=== PATIENT | female | born 1995 | race Caucasian/White ===

== ENCOUNTER 2023-08-08 16:05 | Inpatient (IN) | payer OTHER, SELFPAY ==
[2023-08-08] VITALS (10 sets, daily range): BP systolic 138–154; BP diastolic 80–101; PULSE 80–94; TEMP 36.2–36.4; BMI 40.9
--- NOTE | 2023-08-08 16:25 | LDADM ---
This patient, Mouna Walls, was admitted to Labor/Delivery/Recovery 108 on 08/08/23 at 16:05. Plans for labor, pain management and were discussed with patient. Patient/family oriented to hospital policies and general routines including ID bracelet, bed and alarms, visiting hours, pain management, procedures, bathroom and other care routines, personal items, smoking policy, room service/diet and guest tray routines, infant security routines, and visiting hours. Patient/Family are encouraged to report perceived risks to care and to ask questions if they do not understand what they are told or what they should do. See OBIX for further documentation.
[2023-08-08 17:10] LABS: Basophils Percent Auto 0.3 % (0.2-1.2); Eosinophils Absolute Auto 0.1 K/mm3 (0-0.3); Eosinophils Percent Auto 0.8 % (0-4.4); Hematocrit 36.1 % (37.0-47.0); Hemoglobin 11.8 g/dL (12.0-15.0); Immature Granulocyte Absolute 0.12 K/mm3 (0.00-0.031); Immature Granulocyte Percent A 0.9 % (0-0.5); Lymphocytes Absolute Auto 2.65 K/mm3 (0.9-3.2); Lymphocytes Percent Auto 19.5 % (18.3-44.2); Mean Corpuscular HGB Conc 32.7 g/dl (32-36); Mean Corpuscular Volume 94.8 fl (80-100); Mean Platelet Volume 10.8 fl (7.4-10.4); Monocytes Absolute Auto 0.6 K/mm3 (0.1-0.6); Monocytes Percent Auto 4.1 % (2.6-8.5); Neutrophils Absolute Auto 10.1 K/mm3 (1.3-6.7); Neutrophils Percent Auto 74.4 % (45.5-73.1); Platelet Count Result 271 k/mm3 (150-375); Red Blood Count 3.81 M/mm3 (4.2-5.4); White Blood Count 13.6 K/mm3 (4.5-10.0)
[2023-08-08] MEDS: DINOPROSTONE 10 MG VAG INSERT VAGINAL (17:10)
--- NOTE | 2023-08-08 17:25 | P.PNAN_ITS ---
Anes - Eval Pre Procedure Procedure: labor epidural Date/Time: 08/08/23 17:25 Preop Diagnosis: pain during labor Pre Op Diagnosis: IOL Patient Data Age: 28 Gender: F Height: 1.68 m Weight: 115 kg Last Vital Signs Temp 36.2 C L 08/08/23 16:45 O2 Del Method Room Air 08/08/23 16:23 Allergies Allergy/AdvReac Type Severity Reaction Status Date / Time No Known Allergies Allergy Verified 07/16/23 15:10 Laboratory Tests 08/08/23 16:15 WBC 13.6 H K/mm3 (4.5-10.0) RBC 3.81 L M/mm3 (4.2-5.4) Hgb 11.8 L g/dL (12.0-15.0) Hct 36.1 L % (37.0-47.0) MCV 94.8 fl (80-100) MCH 31.0 pg (26-34) MCHC 32.7 g/dl (32-36) RDW 14.0 % (11.5-14.5) Plt Count 271 k/mm3 (150-375) MPV 10.8 H fl (7.4-10.4) Immature Gran % (Auto) 0.9 H % (0-0.5) Neut % (Auto) 74.4 H % (45.5-73.1) Lymph % (Auto) 19.5 % (18.3-44.2) Brule % (Auto) 4.1 % (2.6-8.5) Eos % (Auto) 0.8 % (0-4.4) Baso % (Auto) 0.3 % (0.2-1.2) Lymph # (Auto) 2.65 K/mm3 (0.9-3.2) Brule # (Auto) 0.6 K/mm3 (0.1-0.6) Eos # (Auto) 0.1 K/mm3 (0-0.3) Baso # (Auto) 0.0 K/mm3 (0.0-0.1) Abs Immat Gran (auto) 0.12 H K/mm3 (0.00-0.031) Absolute Neuts (auto) 10.1 H K/mm3 (1.3-6.7) Absolute Nucleated RBC 0.0 K/mm3 (0.0-0.012) Nucleated RBC % 0.0 % (0.0-0.2) RPR Pending Blood Type Pending Antibody Screen Pending Patient hx anesthesia problems: none Family hx anesthesia problems: none Results Review: All pre-operative results and documents have been reviewed as part of the pre- operative evaluation. [facility] Family History Family History (Updated 07/16/23 @ 15:11 by Silviano Sánchez RN) Father Hypertension Cerebrovascular accident Mother Hypertension Colon cancer Grandparent Colon cancer Sibling Diabetes mellitus Social History Social History Smoking status: Never smoker Substance use: never Lack of Transportation: No Lack of Food: Never True Current Housing: I Have Housing Concerned About Future Housing: No Difficulty Paying Gas/Electric Bills: No Difficulty Paying for Meds: No Currently Unemployed: No Education: Associate Degree Difficulty w/ Childcare or Family Care: No Spiritual care concerns: No Exam Day of Procedure 08/08/23 17:25
[2023-08-09] VITALS (287 sets, daily range): BP systolic 79–159; BP diastolic 39–109; PULSE 60–156; RESP 16–18; TEMP 36.2–36.9; O2SAT 75–100
[2023-08-09] MEDS: LACTATED RINGERS 1,000 ML 125 ML IV CONT ×4 (05:06→20:12)
[2023-08-09] MEDS: OXYTOCIN 30 UNITS/NS 500 ML 30 UNITS/500 ML BAG 6 UNITS IV CONT (05:10)
[2023-08-09] MEDS: fentaNYL CITRATE INJ (*CRX) 100 MCG/2 ML VIAL 50 MCG IV PUSH ×2 (08:27→09:47)
--- NOTE | 2023-08-09 08:55 | PM.IMHP ---
H&P: HPI History of Present Illness Date/Time: 08/09/23 08:55 Chief Complaint: Here for induction of labor Narrative: 28 y/o at 39 2/7 weeks here for induction of labor. Cervidil overnight. Had SROM of clear fluid at 0600. Feeling contractions. GBS neg. Review of Systems Review of Systems: All systems reviewed & are unremarkable except as noted in HPI and below PMFSH Past Medical History Medical History Depression Guttate psoriasis Family History Family History Father Hypertension Cerebrovascular accident Mother Hypertension Colon cancer Grandparent Colon cancer Sibling Diabetes mellitus Social History Social History Smoking status: Never smoker Substance use: never Lack of Transportation: No Lack of Food: Never True Current Housing: I Have Housing Concerned About Future Housing: No Difficulty Paying Gas/Electric Bills: No Difficulty Paying for Meds: No Currently Unemployed: No Education: Associate Degree Difficulty w/ Childcare or Family Care: No Spiritual care concerns: No Meds Home Medications and Allergies Allergies Allergy/AdvReac Type Severity Reaction Status Date / Time No Known Allergies Allergy Verified 07/16/23 15:10 Vital Signs Vital Signs - 24 hr 08/08/23 16:23 08/08/23 16:45 08/08/23 17:31 Temperature 36.2 C L Pulse Rate 80 Blood Pressure 150/101 H Pulse Oximetry Oxygen Delivery Room Air 08/08/23 17:45 08/08/23 18:01 08/08/23 18:04 Temperature 36.4 C Pulse Rate 88 80 Blood Pressure 154/91 H 151/88 H Pulse Oximetry Oxygen Delivery 08/08/23 18:31 08/08/23 19:01 08/08/23 20:18 Temperature 36.4 C L Pulse Rate 88 94 Blood Pressure 149/91 H 148/86 H Pulse Oximetry Oxygen Delivery 08/08/23 23:03 08/08/23 23:02 08/09/23 03:02 Temperature 36.2 C L Pulse Rate 86 83 Blood Pressure 138/80 134/94 H Pulse Oximetry Oxygen Delivery 08/09/23 03:01 08/09/23 04:37 08/09/23 05:01 Temperature 36.3 C L Pulse Rate 80 79 Blood Pressure 146/76 H 133/82 Pulse Oximetry Oxygen Delivery 08/09/23 05:14 08/09/23 05:31 08/09/23 06:01 Temperature 36.6 C Pulse Rate 79 77 Blood Pressure 141/85 H 146/94 H Pulse Oximetry Oxygen Delivery 08/09/23 06:29 08/09/23 06:31 08/09/23 07:01 Temperature 36.7 C Pulse Rate 76 72 Blood Pressure 153/83 H 147/85 H Pulse Oximetry Oxygen Delivery 08/09/23 07:31 08/09/23 08:01 08/09/23 08:25 Temperature Pulse Rate 78 76 Blood Pressure 129/83 131/84 Pulse Oximetry 98 Oxygen Delivery 08/09/23 08:30 08/09/23 08:31 08/09/23 08:34 Temperature 36.3 C L Pulse Rate 79 Blood Pressure 137/67 Pulse Oximetry 99 Oxygen Delivery 08/09/23 08:35 08/09/23 08:40 08/09/23 08:45 Temperature Pulse Rate Blood Pressure Pulse Oximetry 98 98 97 Oxygen Delivery 08/09/23 08:50 Temperature Pulse Rate Blood Pressure Pulse Oximetry 100 Oxygen Delivery Exam Const: Orientation/consciousness: patient oriented x3 Other: Well-developed, well-nourished female in no acute distress. Neck: Thyroid: thyroid normal Lymphatic: no lymphadenopathy noted (in neck, axilla or inguinal nodes) Resp: Effort & Inspection: normal respiratory effort Auscultation: clear to auscultation bilaterally Cardio: Rate: regular rate Rhythm: regular rhythm Heart sounds: S1 normal heart sound present and S2 normal heart sound present GI: Other: ABD: Soft, nontender, nondistended, gravid. NST reactive. TOCO: irregular contractions. : General: Yes no CVA tenderness Other: Gross ROM. Cervix 2-3/80/-2. IUPC placed. Vertex. Back/Spine/Pelvis: Back: no CVA tenderness Skin: General skin exam: normal color and no r
--- NOTE | 2023-08-09 12:49 | PM.OBPNLAB ---
Pain Control Date/time seen: 08/09/23 12:49 Comments: Comfortable with epidural. Pelvic Exam Dilation (cm): 3 Effacement (%): 50 station: -2 Contractions Contraction pattern: Irregular Contraction intensity: Mild Status status: Category l Assessment and Plan Pitocin rate (mU/min): 6 Comments: Continue oxytocin per protocol.
[2023-08-09] MEDS: ONDANSETRON INJ 4 MG/2 ML VIAL IV PUSH (14:15)
[2023-08-09 16:03] LABS: Rapid Plasma Reagin Non-Reactive (NonReactive)
--- NOTE | 2023-08-09 17:50 | PM.OBPNLAB ---
Pain Control Date/time seen: 08/09/23 17:50 Comments: Comfortable with epidural. Pelvic Exam Dilation (cm): 5 Effacement (%): 50 station: -2 Contractions Contraction frequency: 3 Contraction pattern: Irregular Contraction intensity: Mild Status status: Category l Assessment and Plan Comments: Continue labor.
[2023-08-09] MEDS: SODIUM CHLORIDE 0.9% IV 300 ML 600 ML I-UTERINE (18:23)
[2023-08-09] MEDS: FAMOTIDINE 20 MG/2 ML VIAL IV PUSH (23:18)
[2023-08-10] VITALS (79 sets, daily range): BP systolic 110–163; BP diastolic 70–116; PULSE 25–140; RESP 16–18; TEMP 36.6–37.3; O2SAT 72–100
[2023-08-10] MEDS: LACTATED RINGERS 1,000 ML 125 ML IV CONT (00:07)
[2023-08-10] MEDS: AMPICILLIN 2 GM/NS 100 ML 2 GM/100 ML BAG IVPB (00:36)
--- NOTE | 2023-08-10 01:08 | PM.OBPNLAB ---
Pain Control Date/time seen: 08/10/23 01:08 Comments: Feeling some pressure Pelvic Exam Dilation (cm): 10 Effacement (%): 100 station: +1 Contractions Contraction frequency: 3 Contraction pattern: Irregular Contraction intensity: Mild Status status: Category ll Assessment and Plan Pitocin rate (mU/min): 16 Comments: Continue pushing
--- NOTE | 2023-08-10 02:46 | PM.OBPRVD ---
OB - Delivery Note Procedure Delivery date: 08/10/23 Procedure: Induction of labor with Induction method: Per Cervidil Protocol Delivery augmentation: Rupture of Membranes and Pitocin Delivery monitor: External FHT, External Uterine and Internal Uterine Route of delivery: Episiotomy description: None Laceration Description: Perineal - 2nd Degree Delivery repair: vicryl (3-0) Specimen: Yes (Cord blood) Quantitative Blood Loss (ml): 220 Anesthesia type: Epidural Disposition: PACU Complications: None Narrative: 28 y/o at 39 3/7 weeks gestation who presented to the hospital for induction of labor. Cervidil was placed overnight, then withdrawn the next morning. Oxytocin was administered intravenously. Amniotomy was performed with return of clear fluid. She received an epidural for pain control. Her labor progressed and her cervix dilated completely. She pushed with good effort and delivered the infant's head to the perineum, followed by the body. The nose and mouth were bulb suctioned. After a delay, the cord was clamped and cut. The infant was handed off the field. Cord blood was collected. The placenta delivered spontaneously and was grossly normal in appearance. The usual 3 vessel cord was noted. A second degree midline perineal laceration was sustained. This was reapproximated using 3 0 Vicryl in the usual layered fashion. Excellent hemostasis resulted as did excellent reapproximation of the normal anatomy. Needle and instrument counts were correct. The patient was taken to recovery room in stable condition. The infant went to the nursery in stable condition. I was present and scrubbed for the entire delivery. [place] Baby Date of : 08/10/23 Time of : 02:47 Weeks of gestation at delivery: 39 gender: Male Weight (pounds): 7 Weight (ounces): 8 presentation: vertex position: Left Occiput Anterior Placenta delivery description: Spontaneous and Normal Configuration Cord Vessel Description: 3 Vessels and Delayed Cord Clamping score one minute: 8 score five minutes: 9
[2023-08-10] MEDS: OXYTOCIN 30 UNITS/NS 500 ML 30 UNITS/500 ML BAG 125 UNITS IV CONT (02:48)
--- NOTE | 2023-08-10 02:48 | PM.OBDSVD ---
DS: Admitting Diagnosis Discharge Date 08/11/23 Admitting Diagnosis IUP at 39 3/7 weeks DS: Discharge Diagnosis Discharge Diagnosis (1) (normal spontaneous vaginal delivery): Code(s): O80 - Encounter for full-term uncomplicated delivery Status: Acute OB - DS: Summary OB Procedures : None OB Procedures Intrapartum: Spontaneous Vag Delivery OB Procedures: : None Time Spent with Patient Time attestation: Total time spent providing and/or coordinating discharge services: DS: Data Data Completed and Pending Labs on day of discharge: Labs from last 24 hours 08/08/23 16:15 RPR Non-reactive Discharge Plan Discharge Attending physician on discharge: Stefano Mar Consulting providers: Paz Loya Discharging Clinician: Stefano Mar Patient Disposition: Home, Self-Care Activity: pelvic rest Diet: regular Discharge Instructions: Education: Mom and Baby Guide Given to: Mother Follow-Up: Call your delivering provider's office for an appointment to be seen in: 6 Weeks Mom and baby should come to the [facility] for the follow-up appointment. Appointment Date/Time: August 13, 2023 at 2:30 pm What to expect at your follow-up visit: Blood Pressure Check Call [phone] if you are unable to keep your appointment time. BREAST CARE: * Wear a snug supportive bra. * For engorgement discomfort: Breast Feeding: * Apply warm moist washcloths * Express milk as needed to relieve engorgement * Wear loose clothing Bottle Feeding: * May apply ice packs * For sore nipples: * Identify correct latch-on * Apply warm moist washcloths before and after nursing * Air dry nipples after nursing * May apply Lansinoh cream to nipples PERINEAL CARE: * Until bleeding stops, use your maral bottle after urinating * Change your pad frequently throughout the day * You may take sitz baths several times a day (fill your bathtub with warm water and soak for 20 minutes.) Do NOT bathe in the water * No tub baths until seen by your physician - You may shower ACTIVITY: * Rest as much as possible. * Do not exercise or lift anything heavier than your baby (such as laundry or other children.) * Avoid stairs or driving as much as possible. * Do not put anything into the vagina. No douching, tampons, or sexual activity until seen by physician. NOTIFY PHYSICIAN IF YOU HAVE ANY QUESTIONS OR IF ANY OF THE FOLLOWING SYMPTOMS OCCUR: * If your perineum becomes red, swollen, or more painful than what you have experienced in the hospital. * If your vaginal bleeding becomes foul smelling. * If your vaginal bleeding becomes more heavy than a period or if your bleeding changes from pink to bright red. However, you may pass an occasional walnut-sized clot once or twice for the first week . * If you experience a sharp, shooting pain in you calves. * If you discover a hard, reddened area on your breast or if you experience flu-like symptoms. * If you have a fever of 100.4 or greater DIET: * Eat regular, well-balanced meals. * Drink plenty of fluids daily. If , drink to thirst.Call or return if temperature above 100.4? F, increased abdominal pain, increased vaginal bleeding or any new problems. Stand Alone Forms: General Discharge Information Follow-up/Referrals: Stefano Mar MD [Physician] - 6 Weeks Discharge Medications: New ibuprofen 600 mg tablet 600 mg PO Q6H PRN (Reason: cramps) Qty: 30 0RF sertraline [Zoloft] 50 mg tablet 50 mg PO DAILY Qty: 30 2RF Date of admission: 08/08/23 16:05 Primary Care Provider: PHYSICIAN,JAVA MOBILE DEVELOPER Admitting Provider: Stefano Mar Attending physician on admission: Deshaun Oliver Condition: Stable
[2023-08-10] MEDS: IBUPROFEN 600 MG TABLET PO ×3 (04:49→23:14)
[2023-08-10] MEDS: DOCUSATE SODIUM 100 MG CAPSULE PO ×2 (07:25→16:31)
[2023-08-10] MEDS: SERTRALINE HCL 50 MG TABLET PO (07:25)
[2023-08-10] MEDS: MULTIVIT/MIN/PREN/FOL AC/IRON TABLET 1 TAB PO (07:25)
[2023-08-10] MEDS: ACETAMINOPHEN 325 MG TABLET 650 MG PO (07:26)
--- NOTE | 2023-08-10 09:48 | PC.NURSE ---
[id number] Introductions were made, then consulted with patient to assess needs related to . Mother led the conversation with her?plans to feed?her infant, the?experience so far and practicing with and without the nipple shield during the first attempt, then using the nipple shield the entire 2nd breastfeed. Mother states the nipple shield is too big and causes her pain. Mother has her own personal Spectra pump here with 19mm flanges that she measured herself for. Encouraged understanding of the benefits of skin to skin (demonstrating unwrapping and placing upright on her chest), stimulating with massage touch, changing positions to encourage wakefulness, how to watch for early feeding cues, responsive feeding, feeding on demand (aiming for 8-12 times in 24 hours, about every 2-3 hours), milk production, building/maintaining a milk supply, duration of feeding, signs of adequate intake/output and how to record on the feeding sheet. Infant is sleepy and reluctant demonstrating no REM or feeding cues at this time. Resources provided for inpatient and outpatient services with the feeding sheet, mom/baby guide and name written on the white board. Mother voiced understanding of information and will call if there is a request for assistance. Reported to the primary RN. [id number] - Primary RN reported that patient is physically uncomfortable (unable to urinate and in pain) and is not sure if she wants to breastfeed.
[2023-08-10] MEDS: ONDANSETRON INJ 4 MG/2 ML VIAL IV PUSH (10:01)
--- NOTE | 2023-08-10 14:37 | PC.NURSE ---
[id number] Consulted with patient to assess needs related to after a request to assist. Mother works well with her . Reviewed working with , supporting breast and how to protect the nipples with an optimal deep latch, good positioning, and good hand washing. Encouraged understanding the benefits of skin to skin, responding to feeding cues, frequencies of feeding 8-12 times in 24 hours (approximately 2-3 hours), duration of feedings, milk production, hand expression, intake/output, (pie demonstration) logging on the feeding sheet and signs of adequate intake encouraging swallowing at the breast. Reviewed positioning and alignment, supporting breast, off-centered (asymmetrical latch) and leading with the chin with big, open, wide gape. Infant latched optimally to the left breast in football position. Education given to mother of how to visualize suck/swallow and listen for drinking at the breast which infant demonstrated. Infant was able to maintain latch without discomfort to mother. Nipple care reviewed with optimal latch, good positioning and using clean hands when feeding her infant and touching her breast. Resources used to facilitate learning were used from the tool, mom and baby guide. Mother voiced understanding of the education shared, to call for assistance if the infant does not latch or if there is discomfort with . Reported to the primary RN.
--- NOTE | 2023-08-10 17:40 | PC.NURSE ---
1500-Pt states she has no sensation to void; RN palpated bladder and pt has no distention; pt is firm at U.
[2023-08-11 05:26] LABS: Hematocrit 24.4 % (37.0-47.0); Hemoglobin 8.2 g/dL (12.0-15.0)
[2023-08-11] MEDS: SERTRALINE HCL 50 MG TABLET PO (06:42)
[2023-08-11] MEDS: POLYSACCHARIDE IRON COMPLEX 150 MG CAPSULE PO (06:42)
[2023-08-11] MEDS: MULTIVIT/MIN/PREN/FOL AC/IRON TABLET 1 TAB PO (06:42)
[2023-08-11] MEDS: ACETAMINOPHEN 325 MG TABLET 650 MG PO (06:42)
--- NOTE | 2023-08-11 07:48 | PM.OBPNVD ---
OB - PN: Subj Subjective Date/time seen: 08/11/23 07:48 Patient comments: no complaints and pain well controlled baby status: doing well OB - PN: Obj Data Labs 08/11/23 04:22 Labs: Laboratory Results - last 24 hr 08/11/23 04:22 Hgb 8.2 L D Hct 24.4 L OB - PN A/P Plan day: 1 Plan: routine care, discharge home and follow up 6 weeks Comments: begin iron Time Spent With Patient Time: Total time spent is greater than 50% in coordination of care (as documented) at patient's floor/unit and/or counseling patient: Time with patient: less than 15 minutes Exam Const: General: cooperative, healthy appearing and comfortable Orientation/consciousness: oriented to person, oriented to place and oriented to time Resp: Effort & Inspection: normal respiratory effort GI: Inspection: normal to inspection (fundus firm)
[2023-08-11 08:00] VITALS: BP 139/75; PULSE 98; RESP 18; TEMP 37.1; O2SAT 98
[2023-08-11] MEDS: IBUPROFEN 600 MG TABLET PO (10:13)
--- NOTE | 2023-08-11 13:00 | PC.NURSE ---
PT introductions made and plan of care discussed per post , pain management, breast/bottle feeding, daily care activities and pending discharge to home. PT and spouse both recipients of such instructions and no barriers to learning identified at this time. PT received such instructions per one to one discussion, mom baby care guide and demonstrations. PT verbalized understanding of such care.
--- NOTE | 2023-08-11 14:00 | PC.NURSE ---
Patient was given the opportunity to view the discharge video Mother & Baby Care, The First Two Weeks . Patient down loaded the video and will watch at home. Patient was given the opportunity and encouraged to ask questions. Patient verbalized understanding of information shared and has been given the mother/baby guide for home reference.
--- NOTE | 2023-08-11 14:56 | PC.NURSE ---
Addendum entered by Tony Chau RN 08/11/23 14:57: actual time of discharge 1440 Original Note: PT discharged to home ambulatory accompanied by spouse and infant and taken to waiting car. follow up appts confirmed
[2023-08-13 14:49] VITALS: BP 150/84; PULSE 90; RESP 18; TEMP 37.1; O2SAT 98
== END 2023-08-11 14:40 | disposition home or self-care (01) | DRG 807 ==
LOC: ANHLDR 08-10 02:49 → ANHOB2 08-11 13:14 → ANHLDR 08-13 10:25 → ANHOB2 08-13 10:25
PROVIDERS: Admitting Provider Obstetrics & Gynecology; Visit Provider Obstetrics & Gynecology
DX: O70.1 Second degree perineal laceration during delivery (principal); Z37.0 Single live birth; Z3A.39 39 weeks gestation of pregnancy
CPT/HCPCS: 36415; 85014; 85018; 85025; 86592; 86850; 86900; 86901; A9270; J0290; J2405; J2590; J2795; J3010; J7030; J7120

== ENCOUNTER 2023-08-30 09:08 | Outpatient (RCR) | payer OTHER, SELFPAY | END 2023-11-28 23:59 | disposition home or self-care (01) | LOC: ANHOBOP 09:08 | PROVIDERS: Visit Provider Pediatrics | DX: Z39.1 Encounter for care and examination of lactating mother (principal) | CPT/HCPCS: 99213; G0463 ==

== ENCOUNTER 2023-09-10 13:43 | Emergency (ER) | payer OTHER, SELFPAY ==
--- NOTE | ~2023-09-10 | US_ITS ---
EXAMINATION: US abdomen limited DATE: 09/10/2023 15:26 INDICATION: Right upper quadrant pain TECHNIQUE: Multiple grayscale and Doppler ultrasound images of the abdomen were obtained. COMPARISON: None available FINDINGS: Bowel gas obscures visualization of the pancreas. The liver is normal with normal echogenic ity and echotexture. No surface nodularity. Normal hepatopetal flow in the main portal vein. Stones a re present in the nondistended gallbladder. No gallbladder wall thickening or pericholecystic fluid. The normal common bile duct measures 4 mm. Sonographic Munguia sign is positive. IMPRESSION: 1. Cholelithiasis and positive sonographic Munguia sign without additional findings of acute cholecyst itis. If there is high clinical suspicion for acute cholecystitis, consider nuclear hepatobiliary sca n. Reviewed, dictated and finalized at location B. [employer] [employer] [employer] IMPRESSION: 1. Cholelithiasis and positive sonographic Munguia sign without additional findi ngs of acute cholecystitis. If there is high clinical suspicion for acute david cystitis, consider nuclear hepatobiliary scan.
--- NOTE | ~2023-09-10 | CT_ITS ---
EXAMINATION: CT abdomen pelvis w con DATE: 09/10/2023 18:45 INDICATION: epigastric pain, transaminitis TECHNIQUE: Computed tomography (CT) of the abdomen and pelvis was performed with 100 mL Omnipaque-350 intravenous contrast. Automated exposure control and iterative reconstruction technique were employe d. The dose-length product was 1178.35 mGy-cm. COMPARISON: Ultrasound abdomen, same date. FINDINGS: Lower thorax: Unremarkable Liver: Normal. Biliary/Gallbladder: Gallbladder is normal, without CT evidence of cholelithiasis, pericholecystic fl uid, or inflammatory change. Mild intrahepatic bile duct dilation. The common bile duct measures 7 mm at the helio hepatis. Pancreas: No mass or duct dilation. Spleen: Normal. Adrenals:No mass. Kidneys: No suspicious mass, obstructing stone, or hydronephrosis. Subcentimeter left upper pole hypo density, too small to characterize but most likely represents a cyst. GI tract: No small or large bowel dilation. Normal appendix. Mesentery/Peritoneum: No ascites, mass, or free air. Retroperitoneum: No mass. Pelvis: Pelvic organs are within normal limits. Soft Tissues: Soft tissues and body wall unremarkable. Bones: No acute osseous finding. IMPRESSION: Mild intra and extrahepatic bile duct dilation. No obstructing stone or mass detected. Prior ultrasou nd demonstrated cholelithiasis with a positive sonographic Munguia sign. Consider further evaluation w ith MRCP and/or hepatobiliary scan as clinically indicated. Reviewed, dictated and finalized at location K. LY ASSOCIATE IMPRESSION: Mild intra and extrahepatic bile duct dilation. No obstructing stone or mass de tected. Prior ultrasound demonstrated cholelithiasis with a positive sonographi c Munguia sign. Consider further evaluation with MRCP and/or hepatobiliary scan as clinically indicated.
[2023-09-10 13:48] VITALS: BP 154/93; PULSE 95; RESP 21; TEMP 36.3; O2SAT 100
[2023-09-10 14:13] LABS: Basophils Percent Auto 0.3 % (0.2-1.2); Eosinophils Absolute Auto 0.2 K/mm3 (0-0.3); Eosinophils Percent Auto 1.7 % (0-4.4); Hematocrit 36.3 % (37.0-47.0); Hemoglobin 11.7 g/dL (12.0-15.0); Immature Granulocyte Absolute 0.03 K/mm3 (0.00-0.031); Immature Granulocyte Percent A 0.3 % (0-0.5); Lymphocytes Absolute Auto 2.88 K/mm3 (0.9-3.2); Lymphocytes Percent Auto 24.6 % (18.3-44.2); Mean Corpuscular HGB Conc 32.2 g/dl (32-36); Mean Corpuscular Hemoglobin 30.3 pg (26-34); Mean Platelet Volume 9.6 fl (7.4-10.4); Monocytes Absolute Auto 0.7 K/mm3 (0.1-0.6); Monocytes Percent Auto 5.6 % (2.6-8.5); Neutrophils Absolute Auto 7.9 K/mm3 (1.3-6.7); Neutrophils Percent Auto 67.5 % (45.5-73.1); Platelet Count Result 400 k/mm3 (150-375); Red Blood Count 3.86 M/mm3 (4.2-5.4); Red Cell Distribution Width 13.3 % (11.5-14.5); White Blood Count 11.7 K/mm3 (4.5-10.0)
[2023-09-10 14:17] LABS: Alanine Aminotransferase 42 U/L (6-35); Albumin Level 4.5 g/dL (3.5-5.1); Alkaline Phosphatase 132 U/L (38-126); Anion Gap 11 mmol/L (8-16); Aspartate Amino Transferase 83 U/L (14-36); Bilirubin,Total 0.8 mg/dL (0.2-1.3); Blood Urea Nitrogen 11 mg/dL (7-17); Calcium 9.5 mg/dL (8.4-10.2); Carbon Dioxide 22 mmol/L (22-30); Chloride 106 mmol/L (98-107); Estimated CRCL calculation 109 ml/min; Estimated Glomerular Filt Rate > 60; Glucose 94 mg/dL (65-110); Lipase 163 U/L (23-300); Sodium 139 mmol/L (137-145)
--- NOTE | 2023-09-10 14:44 | ED.GENADULT ---
HPI - General Adult General Chief complaint: Abdominal Pain <Elicia Sahu March Last Filed: 09/10/23 14:46> Stated complaint: Abdominal pain <Elicia Sahu March - Last Filed: 09/10/23 14:46> Time Seen by Provider: 09/10/23 18:26 <Elicia Sahu March - Last Filed: 09/10/23 14:46> Source: patient <Gifty Fuentes PA-C - Last Filed: 09/10/23 20:17> Mode of arrival: ambulatory <RACHID Lerner Last Filed: 09/10/23 20:17> Limitations: no limitations <Gifty Fuentes PA-C - Last Filed: 09/10/23 20:17> History of Present Illness HPI narrative: Mouna Walls is a 28 y/o female without any known PMHx who presents with upper abdominal pain thats been off and on for about 3 weeks and much worse today. Reports nausea/vomiting today X 1. Last BM was today and loose Denies fever/chills. <Elicia Sahu March, - Last Filed: 09/10/23 14:46> Mouna Walls is a 28 y/o female without any known PMHx who presents with upper abdominal pain that's been off and on for about 3 weeks and much worse today. Reports nausea/vomiting today X 1. Last BM was today and loose. Denies fever/chills. <Gifty Fuentes PA-C - Last Filed: 09/10/23 20:17> Related Data Allergies/adverse reactions: Allergies Allergy/AdvReac Type Severity Reaction Status Date / Time No Known Allergies Allergy Verified 07/16/23 15:10 <Elicia Sahu March - Last Filed: 09/10/23 14:46> Review of Systems Review of Systems: CONSTITUTIONAL: Denies fever GASTROINTESTINAL: Reports abdominal pain, nausea, vomiting GENITOURINARY: Denies dysuria <RACHID Lerner Last Filed: 09/10/23 20:17> All systems reviewed & are unremarkable except as noted in HPI and below <Gifty Fuentes PA-C - Last Filed: 09/10/23 20:17> [facility] Past Medical History Medical History: Medical History Depression Guttate psoriasis <Elicia ZazuetaGabe March, - Last Filed: 09/10/23 14:46> Family History Family History: Family History Father Hypertension Cerebrovascular accident Mother Hypertension Colon cancer Grandparent Colon cancer Sibling Diabetes mellitus <Elicia ZazuetaGabe March, - Last Filed: 09/10/23 14:46> Social History Social History: Social History Smoking status: Never smoker Substance use: never Lack of Transportation: No Lack of Food: Never True Current Housing: I Have Housing Concerned About Future Housing: No Difficulty Paying Gas/Electric Bills: No Difficulty Paying for Meds: No Currently Unemployed: No Education: Associate Degree Difficulty w/ Childcare or Family Care: No Spiritual care concerns: No <Elicia CarlitaGabe March, - Last Filed: 09/10/23 14:46> Exam Narrative: GENERAL: Well-appearing, well-nourished, and in no acute distress. HEAD: Normocephalic, atraumatic. EYES: EOMI. CHEST: Clear to auscultation. No respiratory distress. No wheezes rales or rhonchi HEART: Regular rate and rhythm. No murmur heard. Normal peripheral pulses. ABDOMEN: Soft, nontender, nondistended, normal active bowel sounds. EXTREMITIES: Normal range of motion. No edema. SKIN: Warm, dry, no rash. NEURO: No focal deficits. Alert and oriented x3. PSYCH: Normal mood and affect <Gifty Fuentes PA-C - Last Filed: 09/10/23 20:17> Course Course Emergency Course: Patient was updated on work-up and agrees with plan of care. Resting comfortably <Gifty Fuetnes PA-C - Last Filed: 09/10/23 20:17> Consultations Consultation #1: Spoke with Dr. Mcfarland about patient and workup who will follow up in clinic <Gifty Fuentes PA-C - Last Filed: 09/10/23 20:17> Date: 09/10/23 <Gifty Fuentes PA-C - Last Filed: 09/10/23 20:17> Vital Signs Vital signs: Vital Signs Temperature 97.4 F L 09/10/23 13:48 Pulse
[2023-09-10 14:49] LABS: Appearance Urine Cloudy (Clear); Bacteria Urine None Seen /hpf; Bilirubin Urine Negative (Negative); Blood Urine 2+ (Negative); Color Urine Yellow (Yellow); Glucose Urine UA Negative (Negative); Ketones Urine Negative (Negative); Leukocyte Esterase Ur 1+ LEU/UL (Negative); Nitrate Urine Negative (Negative); Non Pathogenic Casts 0-2; Protein Urine Negative (Negative); RBC Urine 21-50 /hpf (0-2); Specific Grav Ur 1.014 (1.001-1.035); Squamous Epithelial Cell Urine None seen /hpf (Few); Urobilinogen Urine 0.2 mg/dL (<2.0)
[2023-09-10 14:50] LABS: Add Urine Microscopic? YES
--- NOTE | 2023-09-10 18:36 | ED.ABDPAIN ---
HPI - Abdominal Pain General Chief Complaint: Abdominal Pain Stated Complaint: Abdominal pain Time Seen by Provider: 09/10/23 18:26 Related Data Allergies Allergy/AdvReac Type Severity Reaction Status Date / Time No Known Allergies Allergy Verified 07/16/23 15:10 [facility] Past Medical History Medical History Depression Guttate psoriasis Family History Family History Father Hypertension Cerebrovascular accident Mother Hypertension Colon cancer Grandparent Colon cancer Sibling Diabetes mellitus Social History Social History Smoking status: Never smoker Substance use: never Lack of Transportation: No Lack of Food: Never True Current Housing: I Have Housing Concerned About Future Housing: No Difficulty Paying Gas/Electric Bills: No Difficulty Paying for Meds: No Currently Unemployed: No Education: Associate Degree Difficulty w/ Childcare or Family Care: No Spiritual care concerns: No Course Vital Signs Vital signs: Vital Signs Temperature 97.4 F L 09/10/23 13:48 Pulse Rate 95 09/10/23 13:48 Respiratory Rate 21 H 09/10/23 13:48 Blood Pressure 154/93 H 09/10/23 13:48 Pulse Oximetry 100 09/10/23 13:48 Oxygen Delivery Room Air 09/10/23 13:48 Temperature 97.4 F L 09/10/23 13:48 Pulse Rate 95 09/10/23 13:48 Respiratory Rate 21 H 09/10/23 13:48 Blood Pressure 154/93 H 09/10/23 13:48 Pulse Oximetry 100 09/10/23 13:48 Oxygen Delivery Room Air 09/10/23 13:48 MDM - Abdominal Pain Lab Data 09/10/23 13:53 09/10/23 13:53 Labs: Lab Results 09/10/23 09/10/23 Range/Units 13:53 14:39 WBC 11.7 H (4.5-10.0) K/mm3 RBC 3.86 L (4.2-5.4) M/mm3 Hgb 11.7 L D (12.0-15.0) g/dL Hct 36.3 L (37.0-47.0) % MCV 94.0 (80-100) fl MCH 30.3 (26-34) pg MCHC 32.2 (32-36) g/dl RDW 13.3 (11.5-14.5) % Plt Count 400 H (150-375) k/mm3 MPV 9.6 (7.4-10.4) fl Immature Gran % (Auto) 0.3 (0-0.5) % Neut % (Auto) 67.5 (45.5-73.1) % Lymph % (Auto) 24.6 (18.3-44.2) % [place] % (Auto) 5.6 (2.6-8.5) % Eos % (Auto) 1.7 (0-4.4) % Baso % (Auto) 0.3 (0.2-1.2) % Lymph # (Auto) 2.88 (0.9-3.2) K/mm3 [place] # (Auto) 0.7 H (0.1-0.6) K/mm3 Eos # (Auto) 0.2 (0-0.3) K/mm3 Baso # (Auto) 0.0 (0.0-0.1) K/mm3 Abs Immat Gran (auto) 0.03 (0.00-0.031) K/mm3 Absolute Neuts (auto) 7.9 H (1.3-6.7) K/mm3 Absolute Nucleated RBC 0.0 (0.0-0.012) K/mm3 Nucleated RBC % 0.0 (0.0-0.2) % Sodium 139 (137-145) mmol/L Potassium 4.0 (3.4-5.0) mmol/L Chloride 106 (98-107) mmol/L Carbon Dioxide 22 (22-30) mmol/L Anion Gap 11 (8-16) mmol/L BUN 11 (7-17) mg/dL Creatinine 0.80 (0.7-1.0) mg/dL Estim Creat Clear Calc 109 ml/min Estimated GFR > 60 (59 - ) Glucose 94 (65-110) mg/dL Calcium 9.5 (8.4-10.2) mg/dL Total Bilirubin 0.8 (0.2-1.3) mg/dL AST 83 H (14-36) U/L ALT 42 H (6-35) U/L Alkaline Phosphatase 132 H (38-126) U/L Total Protein 8.0 (6.3-8.2) g/dL Albumin 4.5 (3.5-5.1) g/dL Lipase 163 (23-300) U/L Urine Color Yellow (Yellow) Urine Appearance Cloudy H (Clear) Urine pH 6.0 (5.0-9.0) Ur Specific [place] 1.014 (1.001-1.035) Urine Protein Negative (Negative) mg/dL Urine Glucose (UA) Negative (Negative) mg/dL Urine Ketones Negative (Negative) mg/dL Ur Blood (Man) 2+ H (Negative) Urine Nitrate Negative (Negative) Urine Bilirubin Negative (Negative) Urine Urobilinogen 0.2 (<2.0) mg/dL Leukocyte Esterase Rfl 1+ H (Negative) MARLENY/UL Urine RBC 21-50 H (0-2) /hpf Urine WBC 6-10 H /hpf Ur Squamous Epith Cells None seen (Few) /hpf Urine Bacteria None seen /hpf Urine Casts 0-2 UCG Bedside
[2023-09-10] MEDS: ONDANSETRON INJ 4 MG/2 ML VIAL IV PUSH (18:50)
--- NOTE | 2023-09-10 19:15 | PC.NURSE ---
Assumed care of pt. at this time. Report from COURTNEY Ames
[2023-09-10 19:30] VITALS: BP 142/91; PULSE 67; RESP 14; O2SAT 99
[2023-09-10] MEDS: ACETAMINOPHEN 500 MG TABLET 1000 MG PO (19:30)
[2023-09-10 20:30] VITALS: BP 145/89; PULSE 66; RESP 19; O2SAT 100
[2023-09-10] MEDS: KETOROLAC 15 MG/ML VIAL (*BKC) IV PUSH (20:35)
== END 2023-09-10 20:30 | disposition home or self-care (01) ==
PROVIDERS: Emergency Medicine; Emergency Provider Physician Assistant
DX: K80.70 Calculus of gallbladder and bile duct without cholecystitis without obstruction (principal); L40.4 Guttate psoriasis
CPT/HCPCS: 36415; 74177; 76705; 80053; 81001; 81025; 83690; 85025; 87086; 96374; 96375; 99284; A9270; J1885; J2405; Q9967

== ENCOUNTER 2023-09-14 03:14 | Day surgery (SDC) | payer OTHER, SELFPAY ==
[2023-09-12 11:13] VITALS: BMI 35.8
--- NOTE | 2023-09-12 11:17 | PC.NURSE ---
Report to the Outpatient Waiting Room, entrance under the green pavilion located off [facility], at time 0600 on date 09/14/23. Planned Procedure Time: 0730. Time changes happen often and if your time is changed the preop area will call you the afternoon before. - You and your visitor will be asked to self-screen and do not enter if you have any COVID symptoms. - A mask is optional within the hospital at this time. Patients may have clear liquids (water, carbonated beverages, clear teas, apple juice) until 3 hours prior to surgery with a maximum of 20 ounces. - No food from midnight until time of surgery Take the following medications with a SIP of water the morning of surgery: ZOLOFT, PAIN PILL IF NEEDED DO NOT STOP ANY OF YOUR OTHER PRESCRIPTION MEDICATIONS PRIOR TO SURGERY ?EXCEPT THE FOLLOWING Medications to discontinue per physician: VITAMINS/SUPPLEMENTS Date to take last dose: NO MORE UNTIL AFTER SURGERY Please no make-up, nail irish, hairspray, perfume, deodorant, or body powder the day of surgery. No jewelry (including any body piercings) or valuables the day of surgery, leave them at home. Please take a shower or bath the night before, or the morning of, surgery with an antibacterial soap. Wear comfortable, loose fitting clothing. - Jewelry must be removed prior to entering the operating room. Rings and piercings that are not removed may be cut off. - The hospital will not accept responsibility for valuables. - Please leave all valuables, including medications, at home the day of surgery. If you are going home after surgery, a licensed tanker truck driver must drive you home. - NO public transportation without another adult if you receive anesthesia. - We recommend that an adult stay with you for 24 hours following discharge. - We also recommend that you do not drive, make important decision, drink alcoholic beverages, or take any drugs that were not prescribed by your health care provider for at least 24 hours after your discharge time. Follow any additional instructions given to you from your surgeon. If you or anyone in your household have experienced Covid symptoms in the past week, please notify your surgeon or the nurse liaison at the phone number below for possible testing. Telephone instructions given to PT - GUME LOUIS and asked if any additional questions and then verbalized understanding. Patient advised to call surgeon office or pre surgery nurse liaison [phone] if any additional questions.
[2023-09-14] VITALS (10 sets, daily range): BP systolic 120–160; BP diastolic 68–92; PULSE 54–80; RESP 12–17; TEMP 36.1–36.2; O2SAT 98–100
--- NOTE | 2023-09-14 06:35 | P.PNAN_ITS ---
Anes - Initial Pre Proc Eval Procedure: Operation Date: 09/14/23 07:30 Proposed Procedures p Laparoscopic Cholecystectomy - Sylvia Mcfarland MD Date/Time: 09/14/23 06:35 Surgeon: Sylvia Mcfarland MD Pre Op Diagnosis: acute cholecystitis with stones Patient Data Age: 28 Gender: F Height: 1.68 m Weight: 100.7 kg Allergies Allergy/AdvReac Type Severity Reaction Status Date / Time No Known Allergies Allergy Verified 09/14/23 06:00 Home Medications Medication Instructions Recorded Confirmed Type sertraline 50 mg tablet (Zoloft) 50 mg PO DAILY #30 tabs 08/10/23 09/12/23 Rx hydrocodone 5 mg-acetaminophen 325 1 tablet PO Q8H PRN pain #14 tabs 09/10/23 09/12/23 Rx mg tablet FIC-lisx-EY-omega 3-fat com #1 27 1 cap PO DAILY 09/11/23 09/12/23 History mg-1 mg-300 mg capsule ibuprofen 600 mg tablet 600 mg PO Q6H PRN Pain 09/11/23 09/12/23 History ondansetron 4 mg disintegrating 4 mg PO Q8H 09/11/23 09/12/23 History tablet cholecalciferol (vitamin D3) 125 125 mcg PO DAILY 09/12/23 09/12/23 History mcg (5,000 unit) tablet (Vitamin D3) Patient hx anesthesia problems: none Family hx anesthesia problems: none Results Review: All pre-operative results and documents have been reviewed as part of the pre- operative evaluation. [facility] Past Medical History Medical History Depression Guttate psoriasis Family History Family History Father Hypertension Cerebrovascular accident Mother Hypertension Colon cancer Grandparent Colon cancer Sibling Diabetes mellitus Social History Social History Smoking status: Never smoker Alcohol intake: never Substance use: never Substance use type: does not use Lack of Transportation: No Lack of Food: Never True Current Housing: I Have Housing Concerned About Future Housing: No Difficulty Paying Gas/Electric Bills: No Difficulty Paying for Meds: No Currently Unemployed: No Education: Associate Degree Difficulty w/ Childcare or Family Care: No Living arrangements: with family Spiritual care concerns: No Anes - Eval Final PreProcedure Day of Procedure 09/14/23 06:35 Patient weight: obese Heart: regular rate and rhythm Lungs: clear to auscultation Airway: Mallampati scale class II Neurological: alert and oriented Last oral intake: >/= 8 hours ASA classification: II Emergent: no Anesthetic plan: proceed Anesthesia type and monitoring: general ETT and standard monitoring Results Review: All pre-operative results and documents have been reviewed as part of the pre- operative evaluation. Informed Consent: The patient's anesthetic plan and its attendant risks and benefits were dis cussed with the patient/family/POA. Questions were solicited and answers provided to the satisfaction of the patient/family/POA.
[2023-09-14] MEDS: LACTATED RINGERS 1,000 ML 30 ML IV CONT (06:40)
[2023-09-14] MEDS: ACETAMINOPHEN 500 MG TABLET 1000 MG PO (06:56)
[2023-09-14 06:57] LABS: Alanine Aminotransferase 283 U/L (6-35); Albumin Level 3.9 g/dL (3.5-5.1); Alkaline Phosphatase 164 U/L (38-126); Amylase 40 U/L (30-110); Aspartate Amino Transferase 94 U/L (14-36); Bilirubin,Total 0.6 mg/dL (0.2-1.3); Lipase 58 U/L (23-300)
[2023-09-14] MEDS: KETOROLAC 15 MG/ML VIAL (*BKC) IV PUSH (06:58)
[2023-09-14] MEDS: SCOPOLAMINE 1.5 MG PATCH TRANSDERM (06:58)
--- NOTE | 2023-09-14 07:07 | WPDHPUPDATE1 ---
History and Physical Update Update Date/Time: 09/14/23 07:07 History and Physical has been reviewed, including an updated exam of the patient. There are NO changes in the patient's condition. Risks, benefits, and alternatives have been discussed and questions answered. Patient agrees to proceed with procedure.
[2023-09-14] MEDS: ceFAZolin 2 GM/D5W 50 ML 2 GM/50 ML BAG IVPB (07:37)
[2023-09-14] MEDS: BUPIVACAINE/EPINEPHRINE 0.5% 50 ML VIAL 30 ML INFILTRATE (07:37)
--- NOTE | 2023-09-14 08:03 | W.PM.PROC2 ---
Procedure Note - Detailed Date of Procedure 09/14/23 Pre-op Diagnosis acute cholecystitis with cholelithiasis Post-op Diagnosis Same Procedure Performed Laparoscopic cholecystectomy Surgeon Sylvia Mcfarland MD Anesthesia General Indications 28-year-old female presented to the office complaining of postprandial right upper quadrant abdominal pain associated with nausea and vomiting. Workup including imaging significant for cholecystitis, cholelithiasis. Findings Cholecystitis with cholelithiasis Description of Procedure The patient was taken to the operating room placed in the supine position. After adequate induction of general anesthesia, the patient was prepped and draped in normal sterile fashion. A time-out was then performed to verify the patient's identity as well as the procedure being performed. I then made a 5 mm incision in the infraumbilical region. Through this, a Veress needle was placed into the peritoneal cavity and CO2 gas was then insufflated. After adequate pneumoperitoneum was achieved, the Veress needle was removed and a 5 mm optiview trocar was placed through this incision under direct visualization. I then placed the laparoscope through this trocar site and under direct visualization placed a further 12 mm subxiphoid port as well as 2 additional 5 mm ports in the right upper abdomen. The gallbladder was then identified and was noted to be moderately inflamed and distended. I was able to place a grasper at the dome of the gallbladder and this was retracted anterior and cephalad up over the liver. A 2nd retractor was then placed at the infundibulum and retracted laterally, this allowed visualization of the triangle of Calot. I then was able to visualize the cystic duct in its entirety from its proximal insertion into the gallbladder, to its distal junction with the common hepatic/common bile duct junction. At this point, I carefully skeletonized the proximal cystic duct with the [place] dissector. I then clipped and transected the proximal cystic duct. Next I visualized the cystic artery. Again the artery was skeletonized, clipped, and transected. I then used the Bovie cautery to take down the peritoneal attachments of the gallbladder off the liver bed. This was somewhat difficult given the amount of inflammation in the posterior space. Once the gallbladder specimen was completely detached, an endo-pouch was placed through the 12 mm port site. I then placed the gallbladder specimen into the Endo pouch and removed the endo-pouch from the 12 mm port site. The specimen will now be sent to pathology for further review. I then copiously irrigated the right upper quadrant. Hemostasis was noted in the liver bed, the clips were noted to be in good position on both the cystic duct stump and the cystic artery stump. No other pathology was noted in the right upper quadrant. I then moved the laparoscope to the subxiphoid port. No iatrogenic injury or other pathology was noted in the lower abdomen. I then closed the 12 mm trocar site under direct visualization using the Ricardo cone and 0 Vicryl suture. At this point, the abdomen was desufflated and all ports removed. All port sites were then closed with 4.O Monocryl subcuticular sutures. Dermabond was placed on each incision. The patient tolerated the procedure well, was extubated in the operating room postoperative and will be transferred to the recovery room in stable condition Estimated Blood Loss 5 Drains No Packing No Pathology Yes Complications No immediate complications Condition Stable Disposition PACU [facility] Billing Surgery - Charge Forward: Surgery Billing
[2023-09-14] MEDS: diphenhydrAMINE HCl INJ 50 MG/ML VIAL 25 MG IV PUSH (08:39)
[2023-09-14] MEDS: oxyCODONE HCL (*CRX) 5 MG TAB IR PO (09:33)
== END 2023-09-14 10:06 | disposition home or self-care (01) ==
PROVIDERS: Visit Provider Surgery
PROC: 0FT44ZZ Resection of Gallbladder, Percutaneous Endoscopic Approach (ICD-10-PCS; CPT 47562; principal; 2023-09-14 07:30)
DX: K80.00 Calculus of gallbladder with acute cholecystitis without obstruction (principal); F32.A Depression, unspecified; Z82.49 Family history of ischemic heart disease and other diseases of the circulatory system; Z80.0 Family history of malignant neoplasm of digestive organs; Z79.891 Long term (current) use of opiate analgesic; E66.9 Obesity, unspecified; Z68.35 Body mass index [BMI] 35.0-35.9, adult
CPT/HCPCS: 47562; 36415; 80076; 82150; 83690; 86850; 86900; 86901; 88304; A9270; J0690; J1200; J1885; J2250; J3010; J7030; J7120

== ENCOUNTER 2025-03-21 21:43 | Inpatient (IN) | payer OTHER, SELFPAY ==
[2025-03-21] VITALS (8 sets, daily range): BP systolic 133–150; BP diastolic 78–98; PULSE 78–89; TEMP 36.6; BMI 38.7
--- OUTSIDE RECORDS SUMMARY | 2025-03-21 22:18 | XMS_ITS | Clinical Summary ---
Author Organization [facility] Address [address] [place] [address] Care Team Providers Care Mail Handler Assistant Name Role Phone Whitney Queen MD Primary Care Provider [phone] Source Comments [facility],non-owned Affiliates and Associated Physician Practices is amultiple site organization consisting of ambulatory clinics and hospital sitesin [place] and [place]. This disclosure is being madepursuant to the Care Everywhere program and may not contain all information available regarding this patient. Last updated 18.[facility] Allergies No known active allergies Medications * Be aware that medications may not be up to date on this document. Alwaysverify current medications with the patient. [place]-3 Fatty Acids (FISH OIL) 1000 MG capsule 05/15/2021 Act natalie MV-Min-Fe Fum-FA-DHA ( 1 PO) 02/14/2021 Act natalie sertraline (ZOLOFT) 50 MG tabletIndication s:Moderate single current episode of major depressive disorder (HCC) Take 1 (one) tablet by mouth once daily 30 tablet 2 02/16/2022 Active buPROPion XL 24hr (WELLBUTRIN-XL) 150 MG tabletIndication s:Moderate single current episode of major depressive disorder (HCC),JOVANNY (generalized anxiety disorder) Take 1 (one) tablet by mouth once daily 30 tablet 2 02/16/2022 Active Active Problems Problem Noted Date Diagnosed Date Moderate single current epis ode of major depressive disorder 02/29/2016 Resolved Problems Problem Noted Date Diagnosed Date Resolved Date Bulimia nervosa 08/03/2014 02/16/2022 Immunizations Immunization Administration Dates Next Due Human Papilloma Virus Verna valent Vaccine 07/13/2014 Human Papilloma Virus Vaccine 10/04/2007, 007 INFLUENZA VACCINE 08/29/2016, 5,08/17/2014,2011 INFLUENZA VACCINE, QUADR. (F LUZONE; FLULAVAL; FLUARIX; AFLURIA QUADRIVALENT; 6MO+), 0.5 ML (IIV4) 08/19/2019 Family History Medical History Relation Name Comments Diabetes Father Cancer - Colon Mother Diabetes Paternal Grandfather Relation Name Status Comments Father Mother Paternal Grandfather Social History Tobacco Use Types Packs/Day Years Used Date Smoking Tobacco: Never Smokeless Tobacco: Never Tobacco Cessation:Counseling Given: No Alcohol Use Standard Drinks/Week Comments No 0 (1 standard drink = 0.6 oz pur e alcohol) PHQ-2 Answer Date Recorded PHQ2 TOTAL SCORE 0 02/16/2022 Comments No Sex and Gender Information Value Date Recorded Sex Assigned at Not on file Legal Sex Female 7:25 PM RESEARCH GROUP DIRECTOR Gender Identity Female 10/07/2020 8:27 AM RESEARCH GROUP DIRECTOR Sexual Orientation Not on file Last Filed Vital Signs Vital Sign Reading Time Taken Comments Blood Pressure 114/72 12/11/2019 4:58 PM RESEARCH GROUP DIRECTOR Pulse 83 12/11/2019 4:58 PM RESEARCH GROUP DIRECTOR Temperature 36.4 C (97.6 F) 12/11/2019 4:58 PM RESEARCH GROUP DIRECTOR Respiratory Rate 17 05/11/2016 4:29 PM CDT Oxygen Saturation 99% 12/11/2019 4:58 PM RESEARCH GROUP DIRECTOR Inhaled Oxygen Concentration - - Weight 81.6 kg (180 lb) 02/10/2021 10:15 AM CDT Height 167.6 cm (5' 6 ) 02/10/2021 10:15 AM CDT Body Mass Index 29.05 02/10/2021 10:15 AM CDT Plan of Treatment Health Maintenance Due Date Last Done Comments HEPATITIS C SCREENING 01/07/2012 DTAP/TDAP/TD VACCINES (1 - Tdap) 2013 HEPATITIS B VACCINE (1 of 3 - 19+ 3-dose series) 2013 PAP SMEAR 06/18/2018 06/18/2015 COVID-19 VACCINE ( - 2023- season) 2024 DEPRESSION SCREENING 11/05/2024 INFLUENZA VACCINE (Season Ended) 2025 08/19/2019, 08/29/2016, 08/04/2015, Additional history exists ZOSTER VACCINE (1 of 2) 01/12/2044 HPV VACCINE Completed 07/13/2014, 09/07, 05/03/2007 HIV SCREENING Completed 01/03/2016 HIB VACCINE Aged Out No longer eligi ble based on patient's age to complete this topic MENINGOCOCCAL (Group B) VACCINE SHARED DECISION-MAKING Aged Out No longer eligible based on patient's age to complete this topic MENINGOCOCCAL GROUPS A/C/Y/W VACCINE Aged Out No longer eligible based on patient's age to complete this topic PNEUMOCOCCAL VACCINE Aged Out No long er eligible based on patient's age to complete this topic Procedures Procedure Name Priority Date/Time Associated Diagnosis Comments HIV-1 HIV-2 ANTIBODY W/ REFLX CONFIRM Routine 01/03/2016 9:25 AM RESEARCH GROUP DIRECTOR STD exposure PAP IG LB CT+GC RFLX HPV HR ASCU Routine 06/18/2015 3:06 PM CDT Contraceptive management Screening for malignant neoplasm of the cervix Screen for STD (sexually transmitted disease) from Last 3 Months or Most Recently Relevant to Health Maintenance Results * HIV-1 HIV-2 ANTIBODY W/ REFLX CONFIRM (01/03/2016 9:25 AM RESEARCH GROUP DIRECTOR) HIV-1/HIV-2 Negative Negative 01/06/2016 12:49 AM RESEARCH GROUP DIRECTOR [facility] ([facility]) Comment: Based on the non-reactive anti-HIV (ROBERTO CARLOS) screen, the HIV Western blot is not indicated and therefore not performed. INTERPRETIVE INFORMATION: HIV-1,-2 w/Reflex to HIV-1 Western Blot This assay should not be used for blood donor screening, associated re-entry protocols, or for screening Human Cells, Tissues and Cellular and Tissue-Based Products (HCT/P). Blood specimen (specimen) BLOOD SPECIMEN / Unknown Venipuncture / Unknown 01/03/2016 9:25 AM RESEARCH GROUP DIRECTOR 01/03/2016 9:25 AM RESEARCH GROUP DIRECTOR Whitney Queen MD LAB - SEROLOGY ORDERABLES Rachael l Result [facility] ([facility]) [address] [place] [address], [facility] * PAP IG CT+GC RFLX HPV ASCU (PO REF LAB) (06/18/2015 3:06 PM CDT) Diagnosis [facility] ACCOUNT BILL Comment: NEGATIVE FOR INTRAEPITHELIAL LESION AND MALIGNANCY. THIS SPECIMEN WAS RESCREENED PART OF OUR TEAM PHYSICIAN PROGRAM. Specimen Adequacy [facility] ACCOUNT BILL Comment: Satisfactory for evaluation. Endocervical and/or squamous metaplastic cells (endocervical component) are present. Clinician Provided ICD9 [facility] ACCOUNT BILL Comment: V25.9 ; Unspecified contraceptive management V76.2 ; Screening for malignant neoplasm of the cervix V74.5 ; Screening examination for venereal disease Performed by [facility] ACCOUNT BILL Comment:Liliya Zamudio, Cytot echnologist (ASCP) QC Reviewed by [facility] ACCOUNT BILL Comment:Denise Toth, Supervisory Medicare Interviewer (ASCP) Comment . [facility] ACCOUNT BILL Note [facility] ACCOUNT BILL Comment: The Pap smear is a screening test designed to aid in the detection of premalignant and malignant conditions of the uterine cervix. It is not a diagnostic procedure and should not be used as the sole means of detecting cervical cancer. Both false-positive and false-negative reports do occur. . IGLBP CPT Code Automation [facility] ACCOUNT BILL Comment: This liquid based ThinPrep(R) pap test was screened with the use of an image guided system. Note [facility] ACCOUNT BILL Comment: The HPV DNA reflex criteria were not met with this specimen result therefore, no HPV testing was performed. . Chlamydia trachomatis [place] Negative Negative [facility] ACCOUNT BILL GC DNA Probe Negative Negative [facility] ACCOUNT BILL MICROSCOPIC CYTOLOGIC EXAMINATION OF SMEAR OF SPECIMEN FROM FEMALE GENITAL TRACT PREPARED USING PAPANICOLAOU TECHNIQUE / Unknown 06/18/2015 3:06 PM CDT 06/19/2015 4:09 AM CDT Narrative [facility] ACCOUNT BILL - 06/23/2015 11:20 AM CDT Source.............Endocervical LMP / Prev Treat...ZOC=[id number] No. of containers..01 CYTYC Thin Prep Vial Resulting Agency Comment [facility] [place] [address] [place] [id number] Whitney Queen MD LAB - PATHOLOGY/CYTOLOGY ORDER ELAINE Final Result [facility] ACCOUNT BILL [address] [place] [address] from Last 3 Months or Most Recently Relevant to Health Maintenance Insurance [facility] * Guarantor: Yousif-ELLIS BARROW Account Type Relation to Patient Date of Phone Billing Address Company Employer [employer] [address] Teams Mail Handler Assistant Relationship Specialty Start Date End Date Whitney Queen MD [address] [place] [address] PCP - General Family Medicine 02/18/13
--- OUTSIDE RECORDS SUMMARY | 2025-03-21 22:18 | XMS_ITS | Encounter Summary ---
Author Organization [facility] Address [address] [place] [address] Care Team Providers Care Nursing Home Assistant Administrator Name Role Phone Whitney Queen MD Primary Care Provider [phone] Reason for Visit * Reason Onset Date Comments MEDICATION REFILL 10/31/2021 Encounter Details Date Type Department Care Team (Late st Contact Info) Description 10/31/2021 Refill [facility] Medical [facility] - Family Medicine [address] [place] [phone] Whitney Queen MD [address] [place] [address] MEDICATION REFILL Social History Tobacco Use Types Packs/Day Years Used Date Smoking Tobacco: Never Smokeless Tobacco: Never Alcohol Use Standard Drinks/Week Comments No 0 (1 standard drink = 0.6 oz pur e alcohol) Comments No Sex and Gender Information Value Date Recorded Sex Assigned at Not on file Legal Sex Female 7:25 PM SWIMMING POOL MAINTENANCE Gender Identity Female 10/07/2020 8:27 AM SWIMMING POOL MAINTENANCE Sexual Orientation Not on file documented as of this encounter Plan of Treatment Not on file documented as of this encounter Visit Diagnoses Diagnosis Moderate single current episode of major depressive disorder (HCC) JOVANNY (generalized anxiety disorder) Generalized anxiety disorder documented in this encounter Care Teams Nursing Home Assistant Administrator Relationship Specialty Start Date End Date Whitney Queen MD [address] [place] [address] PCP - General Family Medicine 02/18/13 documented as of this encounter
--- OUTSIDE RECORDS SUMMARY | 2025-03-21 22:18 | XMS_ITS | Encounter Summary ---
Author Organization [facility] Address [address] [place] [address] Care Team Providers Care Assistant Men'S Lacrosse Coach Name Role Phone Whitney Queen MD Primary Care Provider [phone] Reason for Visit * Reason Onset Date Comments MEDICATION REFILL 10/03/2021 Encounter Details Date Type Department Care Team (Late st Contact Info) Description 10/03/2021 Refill [facility] Medical [facility] - Family Medicine [address] [place] [phone] Whitney Queen MD [address] [place] [address] MEDICATION REFILL Social History Tobacco Use Types Packs/Day Years Used Date Smoking Tobacco: Never Smokeless Tobacco: Never Alcohol Use Standard Drinks/Week Comments No 0 (1 standard drink = 0.6 oz pur e alcohol) Comments No Sex and Gender Information Value Date Recorded Sex Assigned at Not on file Legal Sex Female 7:25 PM MEDICAL LANGUAGE SPECIALIST Gender Identity Female 10/07/2020 8:27 AM MEDICAL LANGUAGE SPECIALIST Sexual Orientation Not on file documented as of this encounter Plan of Treatment Not on file documented as of this encounter Visit Diagnoses Diagnosis Moderate single current episode of major depressive disorder (HCC) JOVANNY (generalized anxiety disorder) Generalized anxiety disorder documented in this encounter Care Teams Assistant Men'S Lacrosse Coach Relationship Specialty Start Date End Date Whitney Queen MD [address] [place] [address] PCP - General Family Medicine 02/18/13 documented as of this encounter
--- OUTSIDE RECORDS SUMMARY | 2025-03-21 22:18 | XMS_ITS | Encounter Summary ---
Author Organization [facility] Address [address] [place] [address] Care Team Providers Care Budget Specialist Name Role Phone Whitney Queen MD Primary Care Provider [phone] Reason for Visit * Reason Onset Date Comments MEDICATION REFILL 02/12/2022 Encounter Details Date Type Department Care Team (Late st Contact Info) Description 02/12/2022 Refill [facility] Medical [facility] - Family Medicine [address] [place] [phone] Whitney Queen MD [address] [place] [address] MEDICATION REFILL Social History Tobacco [...] on file Legal Sex Female 7:25 PM REHABILITATION SERVICES COUNSELOR Gender Identity Female 10/07/2020 8:27 AM REHABILITATION SERVICES COUNSELOR Sexual Orientation Not on file documented as of this encounter Miscellaneous Notes * Telephone Encounter - Whitney Queen MD - 02/14/2022 10:13 AM CDT meds refilled * Telephone Encounter - Liz Crook LPN - 02/13/2022 7:52 AM CDT Last ov 02/10/21 documented in this encounter Plan of Treatment Not on file documented as of this encounter Visit Diagnoses Diagnosis Moderate single current episode of major depressive disorder (HCC) JOVANNY (generalized anxiety disorder) Generalized anxiety disorder documented in this encounter Care Teams Budget Specialist Relationship Specialty Start Date End Date Whitney Queen MD [address] [place] [phone] PCP - General Family Medicine 02/18/13 documented as of this encounter
--- NOTE | 2025-03-21 22:28 | LDADM ---
This patient, Mouna Walls, was admitted to Labor/Delivery/Recovery 105 on 03/21/25 at 21:43. Plans for labor, pain management and were discussed with patient. Patient/family oriented to hospital policies and general routines including ID bracelet, bed and alarms, visiting hours, pain management, procedures, bathroom and other care routines, personal items, smoking policy, room service/diet and guest tray routines, infant security routines, and visiting hours. Patient/Family are encouraged to report perceived risks to care and to ask questions if they do not understand what they are told or what they should do. See OBIX for further documentation.
[2025-03-21 22:30] LABS: Basophils Percent Auto 0.3 % (0.2-1.2); Eosinophils Absolute Auto 0.1 K/mm3 (0-0.3); Eosinophils Percent Auto 0.5 % (0-4.4); Hematocrit 34.3 % (37.0-47.0); Hemoglobin 11.2 g/dL (12.0-15.0); Immature Granulocyte Absolute 0.07 K/mm3 (0.00-0.031); Immature Granulocyte Percent A 0.5 % (0-0.5); Lymphocytes Absolute Auto 3.36 K/mm3 (0.9-3.2); Lymphocytes Percent Auto 22.4 % (18.3-44.2); Mean Corpuscular HGB Conc 32.7 g/dl (32-36); Mean Corpuscular Hemoglobin 30.8 pg (26-34); Mean Corpuscular Volume 94.2 fl (80-100); Mean Platelet Volume 10.4 fl (7.4-10.4); Monocytes Absolute Auto 0.7 K/mm3 (0.1-0.6); Monocytes Percent Auto 4.6 % (2.6-8.5); Neutrophils Absolute Auto 10.8 K/mm3 (1.3-6.7); Neutrophils Percent Auto 71.7 % (45.5-73.1); Platelet Count Result 253 k/mm3 (150-375); Red Blood Count 3.64 M/mm3 (4.2-5.4); Red Cell Distribution Width 14.1 % (11.5-14.5)
[2025-03-21] MEDS: AMPICILLIN 2 GM/NS 100 ML 2 GM/100 ML BAG IVPB (22:36)
[2025-03-21] MEDS: LACTATED RINGERS 1,000 ML 125 ML IV CONT (22:36)
[2025-03-21 22:46] LABS: Alanine Aminotransferase 19 U/L (6-35); Albumin Level 3.5 g/dL (3.5-5.1); Alkaline Phosphatase 123 U/L (38-126); Anion Gap 9 mmol/L (4-12); Aspartate Amino Transferase 26 U/L (14-36); Bilirubin,Total 0.3 mg/dL (0.2-1.3); Blood Urea Nitrogen 12 mg/dL (7-17); Calcium 9.2 mg/dL (8.4-10.2); Carbon Dioxide 17 mmol/L (22-30); Chloride 110 mmol/L (98-107); Estimated CRCL calculation 125 ml/min; Estimated Glomerular Filt Rate > 60; Glucose 91 mg/dL (65-110); Potassium 3.6 mmol/L (3.4-5.0); Sodium 136 mmol/L (137-145); Uric Acid 6.4 mg/dL (2.5-7.5)
[2025-03-21 23:16] LABS: Syphilis IgG/IgM Antibody Negative (Negative)
[2025-03-21] MEDS: OXYTOCIN 30 UNITS/NS 500 ML 30 UNITS/500 ML BAG IV CONT (23:16)
[2025-03-21 23:26] LABS: HIV 1/2 Ab P24 Ag Result Negative (Negative)
[2025-03-22] VITALS (286 sets, daily range): BP systolic 75–158; BP diastolic 39–130; PULSE 60–209; RESP 18–20; TEMP 36.3–37.3; O2SAT 88–100
[2025-03-22] MEDS: AMPICILLIN 1 GM/NS 50 ML 1 GM/50 ML BAG IVPB ×4 (02:26→14:25)
[2025-03-22] MEDS: LACTATED RINGERS 1,000 ML 999 ML IV CONT (02:51)
[2025-03-22] MEDS: fentaNYL CITRATE INJ (*CRX) 100 MCG/2 ML VIAL 50 MCG IV PUSH (03:14)
--- NOTE | 2025-03-22 03:24 | P.PNAN_ITS ---
Anes - Eval Pre Procedure Procedure: labor pain management Date/Time: 03/22/25 03:24 Surgeon: Zaid Preop Diagnosis: pain during labor Pre Op Diagnosis: Leaking Patient Data Age: 30 Gender: F Height: 1.68 m Weight: 109 kg Last Vital Signs Temp 97.7 F 03/22/25 01:25 Pulse 79 03/22/25 03:15 BP 145/79 H 03/22/25 03:15 Pulse Ox 99 03/22/25 03:23 Allergies Allergy/AdvReac Type Severity Reaction Status Date / Time No Known Allergies Allergy Verified 03/11/25 12:48 Home Medications Medication Instructions Recorded Confirmed Type OED-ygms-VO-omega 3-fat com #1 27 1 cap PO DAILY 09/26/23 03/11/25 History mg-1 mg-300 mg capsule Laboratory Tests 03/21/25 03/21/25 22:23 22:24 WBC 15.0 H K/mm3 (4.5-10.0) RBC 3.64 L M/mm3 (4.2-5.4) Hgb 11.2 L g/dL (12.0-15.0) Hct 34.3 L % (37.0-47.0) MCV 94.2 fl (80-100) MCH 30.8 pg (26-34) MCHC 32.7 g/dl (32-36) RDW 14.1 % (11.5-14.5) Plt Count 253 k/mm3 (150-375) MPV 10.4 fl (7.4-10.4) Immature Gran % (Auto) 0.5 % (0-0.5) Neut % (Auto) 71.7 % (45.5-73.1) Lymph % (Auto) 22.4 % (18.3-44.2) [place] % (Auto) 4.6 % (2.6-8.5) Eos % (Auto) 0.5 % (0-4.4) Baso % (Auto) 0.3 % (0.2-1.2) Lymph # (Auto) 3.36 H K/mm3 (0.9-3.2) [place] # (Auto) 0.7 H K/mm3 (0.1-0.6) Eos # (Auto) 0.1 K/mm3 (0-0.3) Baso # (Auto) 0.0 K/mm3 (0.0-0.1) Abs Immat Gran (auto) 0.07 H K/mm3 (0.00-0.031) Absolute Neuts (auto) 10.8 H K/mm3 (1.3-6.7) Absolute Nucleated RBC 0.000 K/mm3 (0.0-0.012) Nucleated RBC % 0.0 % (0.0-0.2) Sodium 136 L mmol/L (137-145) Potassium 3.6 mmol/L (3.4-5.0) Chloride 110 H mmol/L (98-107) Carbon Dioxide 17 L mmol/L (22-30) Anion Gap 9 mmol/L (4-12) BUN 12 mg/dL (7-17) Creatinine 0.70 mg/dL (0.7-1.0) Estim Creat Clear Calc 125 ml/min Estimated GFR > 60 (59 - ) Glucose 91 mg/dL (65-110) Uric Acid 6.4 mg/dL (2.5-7.5) Calcium 9.2 mg/dL (8.4-10.2) Total Bilirubin 0.3 mg/dL (0.2-1.3) AST 26 U/L (14-36) ALT 19 U/L (6-35) Alkaline Phosphatase 123 U/L (38-126) Total Protein 7.0 g/dL (6.3-8.2) Albumin 3.5 g/dL (3.5-5.1) Syphilis IgG/IgM Ab Negative (Negative) HIV 1&2 Ab/P24 Ag 4thGn Negative (Negative) Blood Type A Positive Antibody Screen Negative Patient hx anesthesia problems: none Family hx anesthesia problems: none Prior surgeries: lap david Results Review: All pre-operative results and documents have been reviewed as part of the pre- operative evaluation. [facility] Past Medical History Medical History (Updated 03/22/25 @ 03:27 by Марина Mahajan CRNA) Pain during labor Obesity (BMI 30-39.9) Guttate psoriasis Depression Surgical History Surgical History Hx laparoscopic cholecystectomy Family History Family History Father Hypertension Cerebrovascular accident Cancer of kidney Mother Colon cancer Hypertension Grandparent Colon cancer Sibling Diabetes mellitus Social History Social History Smoking status: Never smoker Alcohol intake: never Substance use: never Substance use type: does not use Do You Feel Safe in your Home?: Yes Lack of Transportation: No Lack of Food: Never True Current Housing: I Have Housing Concerned About Future Housing: No Difficulty Paying Gas/Electric Bills: No Difficulty Paying for Meds: No Currently Unemployed: No Education: Associate Degree Difficulty w/ Childcare or Family Care: No Living arrangements: with family Spiritual care concerns: No Exam Day of Procedure 03/22/25 03:24
[2025-03-22] MEDS: PHENYLEPHRINE 1,000 MCG/10 ML SYRINGE 100 MCG IV PUSH ×4 (04:11→04:55)
[2025-03-22] MEDS: LACTATED RINGERS 1,000 ML 125 ML IV CONT ×2 (05:09→13:20)
[2025-03-22] MEDS: ePHEDrine sulfate INJ 50 MG/ML AMPUL 25 MG IM (09:17)
[2025-03-22] MEDS: FAMOTIDINE 20 MG/2 ML VIAL IV PUSH (10:21)
--- NOTE | 2025-03-22 14:00 | WPDOBADMIT ---
Obstetrics - Admit Note Admission Note: record reviewed. No pertinent additions to the history and/or any subsequent changes in the physical findings that are not consistent with the expected course of the were found. Additions to the history and/or subsequent changes in the physical findings follow. Here with SROM. Possible SROM on 03/20/25 morning. Arrived last pm with complaint of leaking Sunday morning, Sat. Morning, and throughout Sat. No contractions. On arrival 1 cm/th/high. Pitocin and ampicllin started. Called for bradycardic episode. On my arrival, had recovered and /-1. Once recovered for 30 min will restart pitocin.
[2025-03-22] MEDS: OXYTOCIN 30 UNITS/NS 500 ML 30 UNITS/500 ML BAG 999 UNITS IV CONT (17:30)
--- NOTE | 2025-03-22 17:43 | PM.OBPRVD ---
OB - Vaginal Delivery Note Procedure Delivery date: 03/22/25 Events: Other (prolonged ROM) Intrapartal Events: Decelerations (bradycardic episodes x 2 and terminal francoise; deep variables) Induction method: Per Pitocin Protocol Delivery monitor: Internal FHT and Internal Uterine Route of delivery: Episiotomy description: None Laceration Description: Perineal - 2nd Degree Delivery repair: vicryl (3-0) Specimen: No Quantitative Blood Loss (ml): 150 Anesthesia type: Local Disposition: Floor Complications: No immediate complications Narrative: Called when complete and told deep variables recurrent to 50's. On arrival, patient upright in bed.FHTs with some deep variables but not with each contraction. Good variability. After setting her up for delivery, noted anterior lip. Pushed past cervix after about 5 contractions. As descended, decelerations to 50's prolonged. Forceps requested and instructed patient infant needed delivered. Patient pushed very effectively and delivered on 2nd contraction. Tight nuchal cord and marginal insertion noted. Baby Date of : 03/22/25 gender: Male presentation: vertex position: Right Occiput Anterior Placenta delivery description: Spontaneous Cord Vessel Description: 3 Vessels, Nuchal Cord (tight) and Delayed Cord Clamping score one minute: 8 score five minutes: 9 Narrative: Peds present for delivery but not needed. to mom's abdomen then skin to skin.
--- NOTE | 2025-03-22 17:48 | PM.OBDSVD ---
DS: Admitting Diagnosis Discharge Date 03/23/25 Admitting Diagnosis IUP 39 wks Prolonged ROM DS: Discharge Diagnosis Discharge Diagnosis (1) (normal spontaneous vaginal delivery): Code(s): O80 - Encounter for full-term uncomplicated delivery Status: Acute (2) Prolonged rupture of membranes: Code(s): O42.90 - Premature rupture of membranes, unspecified as to length of time between rupture and onset of labor, unspecified weeks of gestation Status: Acute OB - DS: Summary OB Procedures : Ultrasound OB Procedures Intrapartum: Spontaneous Vag Delivery OB Procedures: : None Peripartum Data Infant Delivery Method: Natural Vaginal Laceration Description: Perineal - 2nd Degree Episiotomy description: None complications: none Status at Discharge Functional status at discharge: independent ambulation Overall status at discharge: patient is progressing back to baseline Time Spent with Patient Time attestation: Total time spent providing and/or coordinating discharge services: DS: Data Data Completed and Pending Labs on day of discharge: Labs from last 24 hours 03/21/25 03/21/25 22:24 22:23 WBC 15.0 H RBC 3.64 L Hgb 11.2 L Hct 34.3 L MCV 94.2 MCH 30.8 MCHC 32.7 RDW 14.1 Plt Count 253 MPV 10.4 Immature Gran % (Auto) 0.5 Neut % (Auto) 71.7 Lymph % (Auto) 22.4 [place] % (Auto) 4.6 Eos % (Auto) 0.5 Baso % (Auto) 0.3 Lymph # (Auto) 3.36 H [place] # (Auto) 0.7 H Eos # (Auto) 0.1 Baso # (Auto) 0.0 Abs Immat Gran (auto) 0.07 H Absolute Neuts (auto) 10.8 H Absolute Nucleated RBC 0.000 Nucleated RBC % 0.0 Sodium 136 L Potassium 3.6 Chloride 110 H Carbon Dioxide 17 L Anion Gap 9 BUN 12 Creatinine 0.70 Estim Creat Clear Calc 125 Estimated GFR > 60 Glucose 91 Uric Acid 6.4 Calcium 9.2 Total Bilirubin 0.3 AST 26 ALT 19 Alkaline Phosphatase 123 Total Protein 7.0 Albumin 3.5 Syphilis IgG/IgM Ab Negative HIV 1&2 Ab/P24 Ag 4thGn Negative Blood Type A Positive Antibody Screen Negative Discharge Plan Discharge Attending physician on discharge: Stefano Mar Consulting providers: Марина Mahajan; Lisseth Schneider Discharging Clinician: Stefano Mar Anticipated Discharge Date/Time: 03/24/25 17:49 Patient Disposition: Home Activity: pelvic rest Diet: regular Discharge Instructions: Call or return if temperature above 100.4° F, increased abdominal pain, increased vaginal bleeding or any new problems.Education: Mom and Baby Guide Given to: Mother Follow-Up: Call your delivering provider's office for an appointment to be seen in: 6 weeks Mom and baby should come to the [facility] for the follow-up appointment. Appointment Date/Time: March 25, 2025 at 1100 What to expect at your follow-up visit: physical assessment Call [phone] if you are unable to keep your appointment time. BREAST CARE: * Wear a snug supportive bra. * For engorgement discomfort: Breast Feeding: * Apply warm moist washcloths * Express milk as needed to relieve engorgement * Wear loose clothing Bottle Feeding: * May apply ice packs * For sore nipples: * Identify correct latch-on * Apply warm moist washcloths before and after nursing * Air dry nipples after nursing * May apply Lansinoh cream to nipples EPISIOTOMY/PERINEAL CARE: * Until bleeding stops, use your maral bottle after urinating * Change your pad frequently throughout the day * You may take sitz baths several times a day (fill your bathtub with warm water and soak for 20 minutes.) Do NOT bathe in the water * No tub baths until seen by your physician - You may shower ACTIVITY: * Rest as much as possible. * Do not exercise or lift anything heavier than your baby (such as laundry or other children.) * Avoid stairs or driving as much as possible. * Do not put anything into the vagina. No douching, tampons, or sexual activity until seen by physician. NOTIFY PHYSICIAN IF YOU HAVE ANY QUESTIONS OR IF ANY OF THE FOLLOWING SYMPTOMS OCCUR: * If your episiotomy or incision becomes red, swollen, or more painful than what you have experienced in the hospital. * If your vaginal bleeding becomes foul smelling. * If your vaginal bleeding becomes more heavy than a period or if your bleeding changes from pink to bright red. However, you may pass an occasional walnut-sized clot once or twice for the first week . * If you experience a sharp, shooting pain in you calves. * If you discover a hard, reddened area on your breast or if you experience flu-like symptoms. DIET: * Eat regular, well-balanced meals. * Drink plenty of fluids daily. If , drink to thirst. Patient Instructions: Your Baby (DC), How to Tell if Your Baby is Getting Enough Breast Milk (DC) Patient Language: Argentine Stand Alone Forms: General Discharge Information Follow-up/Referrals: Stefano Mar MD [Physician] - 6 Weeks Discharge Medications: New ibuprofen 600 mg tablet 600 mg PO Q6H PRN (Reason: cramps) Qty: 30 0RF sertraline [Zoloft] 50 mg tablet 50 mg PO DAILY Qty: 30 3RF Continued RTE-fqrw-AR-omega 3-fat com #1 27-1-300 mg capsule 1 cap PO DAILY Date of admission: 03/21/25 21:43 Primary Care Provider: PHYSICIAN,DRYWALL FINISHING FOREMAN Admitting Provider: Davida Hernandez Attending physician on admission: Stefano Mar Condition: Stable
[2025-03-22] MEDS: OXYTOCIN 30 UNITS/NS 500 ML 30 UNITS/500 ML BAG 125 UNITS IV CONT (18:10)
[2025-03-22] MEDS: IBUPROFEN 600 MG TABLET PO (20:19)
[2025-03-22] MEDS: BENZOCAINE 20% AER SPR (*SP) 56 GM CAN 1 SPRAY TOPICAL (20:19)
[2025-03-22] MEDS: WITCH HAZEL 40 PADS 1 PAD TOPICAL (20:19)
--- NOTE | 2025-03-22 23:05 | OBPPTRN ---
Patient transferred to post room #114 via (wheelchair ). Support person present. Oriented to unit, room, information board, rooming in, admission packet and security measures. Patient verbalizes understanding.
[2025-03-23 00:30] VITALS: BP 147/93; PULSE 83; RESP 16; TEMP 37.2; O2SAT 100
[2025-03-23] MEDS: ACETAMINOPHEN 325 MG TABLET 650 MG PO ×2 (03:49→12:40)
[2025-03-23 04:05] VITALS: BP 147/92; PULSE 83; RESP 16; TEMP 37.2; O2SAT 97
[2025-03-23 04:23] LABS: Hematocrit 31.7 % (37.0-47.0); Hemoglobin 10.3 g/dL (12.0-15.0)
[2025-03-23 08:00] VITALS: BP 146/90; PULSE 89; RESP 18; TEMP 36.6; O2SAT 99
--- NOTE | 2025-03-23 08:00 | PC.NURSE ---
Patient transferred to post room #284 via ambulatory. Support person present. Oriented to unit, room, information board, rooming in, admission packet and security measures. Patient verbalizes understanding.
[2025-03-23] MEDS: MULTIVIT/MIN/PREN/FOL AC/IRON TABLET 1 TAB PO (08:15)
[2025-03-23] MEDS: IBUPROFEN 600 MG TABLET PO ×2 (08:15→17:30)
[2025-03-23] MEDS: POLYSACCHARIDE IRON COMPLEX 150 MG CAPSULE PO (08:15)
--- NOTE | 2025-03-23 08:15 | PC.NURSE ---
Request by RN to see patient because she is getting ready to breastfeed. Mom has been independent with latching overnight. She states baby has been sleepy and comes off the breast often during feeds. She was given a nipple shield but is not using it for feedings. She did not have a successful experience with her first baby. She placed infant in football position on the right breast. Her nipple appears to have a small blister on the tip. Mom is able to express drops of colostrum to entice baby. After several tries, baby latched and suckled well. He opens with a wide gape and mom brings him to the breast independently. His bottom lip was rolled in and mom was shown how to use her finger to pull on his chin and flange out the lower lip. He maintains the latch consistently. Mom states there is some mild tenderness. We discussed expected latch tenderness during the first week versus continuous pain or pinching. Mother shown how to identify the deep latch with baby's chin and nose close to the breast. Encouraged her to maintain a deep latch throughout the entire feeding. Mom has supplemented with formula after a few times per her preference. Mother is advised to call out for any assistance needed today. RN updated.
--- NOTE | 2025-03-23 08:46 | P.PNOB_ITS ---
OB - PN: Subj Subjective Date/time seen: 03/23/25 08:46 Narrative: Pain OK. Would like to go home. OB - PN: Obj Data Labs 03/23/25 03:54 03/21/25 22:24 Labs: Laboratory Results - last 24 hr 03/23/25 03:54 Hgb 10.3 L Hct 31.7 L OB - PN A/P Plan day: 1 Comments: A: PPD#1, doing well. P: Home to f/u 6 weeks. Exam 2 Psych: Other: AVSS ABD soft, nontender, fundus firm EXT nontender
--- NOTE | 2025-03-23 09:05 | WPDANLDPN2 ---
Anes-Prog Note L&D Date/Time: 03/23/25 09:05 Comfortable throughout: labor and delivery Neuraxial method: epidural Epidural/Spinal procedure site: clean & non-tender Neuro status: Neuro function grossly intact. Cardiovascular status: normal Respiratory status: normal Airway patency: baseline Mental status: baseline Post-Op hydration status: normal Vital Signs: Last Vital Signs Temp 36.6 C 03/23/25 08:00 Pulse 89 03/23/25 08:00 Resp 18 03/23/25 08:00 BP 146/90 H 03/23/25 08:00 Pulse Ox 99 03/23/25 08:00 O2 Del Method Room Air 03/22/25 06:43 Pain score (VAS): /10 I/O: Intake & Output 03/22/25 03/23/25 03/23/25 23:59 07:59 15:59 Output Total 100 Balance -100 Post-procedural complaints: none Patient feedback: Patient satisfied with anesthetic care.
[2025-03-23 11:54] VITALS: BP 132/79; PULSE 83; RESP 16; TEMP 36.2; O2SAT 99
[2025-03-25 11:22] VITALS: BP 154/84; PULSE 82; RESP 18; TEMP 37; O2SAT 100
== END 2025-03-23 20:05 | disposition home or self-care (01) | DRG 807 ==
LOC: ANHLDR 03-22 17:50 → ANHOBPP 03-22 20:56 → ANHOB2 03-23 08:11
PROVIDERS: Admitting Provider Obstetrics & Gynecology Gynecology; Visit Provider Obstetrics & Gynecology
DX: O42.92 Full-term premature rupture of membranes, unspecified as to length of time between rupture and onset of labor (principal); Z37.0 Single live birth; Z3A.38 38 weeks gestation of pregnancy; O70.1 Second degree perineal laceration during delivery; O36.8330 Maternal care for abnormalities of the fetal heart rate or rhythm, third trimester, not applicable or unspecified; O69.1XX0 Labor and delivery complicated by cord around neck, with compression, not applicable or unspecified
CPT/HCPCS: 36415; 80053; 84550; 85014; 85018; 85025; 86593; 86703; 86850; 86900; 86901; A9270; G0432; J0290; J2371; J2590; J2795; J3010; J7120

== ENCOUNTER 2025-03-25 11:35 | Outpatient (CLI) | payer OTHER, SELFPAY ==
--- OUTSIDE RECORDS SUMMARY | 2025-03-25 11:54 | XMS_ITS | Encounter Summary ---
Author Organization [facility] Address [address] [place] [address] Care Team Providers Care Laborer Ammunition Assembly Name Role Phone Whitney Queen MD Primary Care Provider [phone] Reason for Visit * Reason Onset Date Comments MEDICATION REFILL 10/31/2021 Encounter Details Date Type Department Care Team (Late st Contact Info) Description 10/31/2021 Refill [facility] Medical [facility] - Family Medicine [address] [place] [phone] Whitney Queen MD [address] [place] [address] MEDICATION REFILL Social History Tobacco Use Types Packs/Day Years Used Date Smoking Tobacco: Never Smokeless Tobacco: Never Alcohol Use Standard Drinks/Week Comments No 0 (1 standard drink = 0.6 oz pur e alcohol) Comments No Sex and Gender Information Value Date Recorded Sex Assigned at Not on file Legal Sex Female 7:25 PM SMOKE CHASER Gender Identity Female 10/07/2020 8:27 AM SMOKE CHASER Sexual Orientation Not on file documented as of this encounter Plan of Treatment Not on file documented as of this encounter Visit Diagnoses Diagnosis Moderate single current episode of major depressive disorder (HCC) JOVANNY (generalized anxiety disorder) Generalized anxiety disorder documented in this encounter Care Teams Laborer Ammunition Assembly Relationship Specialty Start Date End Date Whitney Queen MD [address] [place] [address] PCP - General Family Medicine 02/18/13 documented as of this encounter
--- OUTSIDE RECORDS SUMMARY | 2025-03-25 11:54 | XMS_ITS | Clinical Summary ---
Author Organization [facility] Address [address] [place] [address] Care Team Providers Care Liquor Gallery Operator Name Role Phone Whitney Queen MD Primary Care Provider [phone] Source Comments [facility],non-owned Affiliates and Associated Physician Practices is amultiple site organization consisting of ambulatory clinics and hospital sitesin [place], [place], [place] and [place]. This disclosure is being madepursuant to the Care Everywhere program and may not contain all information available regarding this patient. Last updated 18.[facility] Allergies No known active allergies Medications * Be aware that medications may not be up to date on this document. Alwaysverify current medications with the patient. [place]-3 Fatty Acids (FISH OIL) 1000 MG capsule [...] on file Legal Sex Female 7:25 PM LEATHER STRIPPING MACHINE OPERATOR Gender Identity Female 10/07/2020 8:27 AM LEATHER STRIPPING MACHINE OPERATOR Sexual Orientation Not on file Last Filed Vital Signs Vital Sign Reading Time Taken Comments Blood Pressure 114/72 12/11/2019 4:58 PM LEATHER STRIPPING MACHINE OPERATOR Pulse 83 12/11/2019 4:58 PM LEATHER STRIPPING MACHINE OPERATOR Temperature 36.4 C (97.6 F) 12/11/2019 4:58 PM LEATHER STRIPPING MACHINE OPERATOR Respiratory Rate 17 05/11/2016 4:29 PM CDT Oxygen Saturation 99% 12/11/2019 4:58 PM LEATHER STRIPPING MACHINE OPERATOR Inhaled Oxygen Concentration - - Weight 81.6 [...] W/ REFLX CONFIRM Routine 01/03/2016 9:25 AM LEATHER STRIPPING MACHINE OPERATOR STD exposure PAP IG LB CT+GC RFLX HPV HR ASCU Routine 06/18/2015 3:06 PM CDT Contraceptive management Screening for malignant neoplasm of the cervix Screen for STD (sexually transmitted disease) from Last 3 Months or Most Recently Relevant to Health Maintenance Results * HIV-1 HIV-2 ANTIBODY W/ REFLX CONFIRM (01/03/2016 9:25 AM LEATHER STRIPPING MACHINE OPERATOR) HIV-1/HIV-2 Negative Negative 01/06/2016 12:49 AM LEATHER STRIPPING MACHINE OPERATOR [facility] Comment: Based on the non-reactive anti-HIV (ROBERTO [...] Unknown Venipuncture / Unknown 01/03/2016 9:25 AM LEATHER STRIPPING MACHINE OPERATOR 01/03/2016 9:25 AM LEATHER STRIPPING MACHINE OPERATOR Whitney Queen MD LAB - SEROLOGY ORDERABLES Rachael l Result [facility] [address] [place] [address], [facility] * PAP IG CT+GC RFLX HPV ASCU (PO REF LAB) (06/18/2015 3:06 PM CDT) Diagnosis [facility] ACCOUNT BILL Comment: NEGATIVE FOR INTRAEPITHELIAL LESION AND MALIGNANCY. THIS SPECIMEN WAS RESCREENED PART OF OUR CAT AND DOG BATHER PROGRAM. Specimen Adequacy [facility] ACCOUNT BILL [...] [facility] ACCOUNT BILL Comment:Denise Toth, Supervisory Unix Engineer (ASCP) Comment . [facility] ACCOUNT BILL Note [...] 11:20 AM CDT Source.............Endocervical LMP / Prev Treat...UPN=[id number] No. of containers..01 CYTYC Thin Prep Vial Resulting Agency Comment [facility] [address] [place] [id number] Whitney Queen MD LAB - PATHOLOGY/CYTOLOGY ORDER ELAINE Final Result [facility] ACCOUNT BILL [address] [place] [address] from Last 3 Months or Most Recently Relevant to Health Maintenance Insurance [facility] Address: [address] [address] [facility] * Guarantor: Yousif-ELLIS BARROW Account Type Relation to Patient Date of Phone Billing Address Company Employer [employer] [address] Teams Liquor Gallery Operator Relationship Specialty Start Date End Date Whitney Queen MD [address] [place] [address] PCP - General Family Medicine 02/18/13
--- OUTSIDE RECORDS SUMMARY | 2025-03-25 11:54 | XMS_ITS | Encounter Summary ---
Author Organization [facility] Address [address] [place] [address] Care Team Providers Care Sales Operations Director Name Role Phone Whitney Queen MD Primary Care Provider [phone] Reason for Visit * Reason Onset Date Comments MEDICATION REFILL 10/03/2021 Encounter Details Date Type Department Care Team (Late st Contact Info) Description 10/03/2021 Refill [facility] Medical [facility] - Family Medicine [address] [place] [phone] Whitney Queen MD [address] [place] [address] MEDICATION REFILL Social History Tobacco Use Types Packs/Day Years Used Date Smoking Tobacco: Never Smokeless Tobacco: Never Alcohol Use Standard Drinks/Week Comments No 0 (1 standard drink = 0.6 oz pur e alcohol) Comments No Sex and Gender Information Value Date Recorded Sex Assigned at Not on file 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
--- OUTSIDE RECORDS SUMMARY | 2025-03-25 11:54 | XMS_ITS | Encounter Summary ---
Author Organization [facility] Address [address] 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
[2025-03-25 12:02] VITALS: BP 145/75; PULSE 71
[2025-03-25 12:06] LABS: Basophils Percent Auto 0.3 % (0.2-1.2); Eosinophils Absolute Auto 0.2 K/mm3 (0-0.3); Eosinophils Percent Auto 1.3 % (0-4.4); Hematocrit 31.3 % (37.0-47.0); Immature Granulocyte Percent A 0.9 % (0-0.5); Lymphocytes Absolute Auto 2.05 K/mm3 (0.9-3.2); Lymphocytes Percent Auto 17.8 % (18.3-44.2); Mean Corpuscular HGB Conc 31.9 g/dl (32-36); Mean Corpuscular Hemoglobin 30.8 pg (26-34); Mean Corpuscular Volume 96.3 fl (80-100); Mean Platelet Volume 9.8 fl (7.4-10.4); Monocytes Absolute Auto 0.6 K/mm3 (0.1-0.6); Monocytes Percent Auto 4.8 % (2.6-8.5); Neutrophils Absolute Auto 8.6 K/mm3 (1.3-6.7); Neutrophils Percent Auto 74.9 % (45.5-73.1); Platelet Count Result 219 k/mm3 (150-375); Red Blood Count 3.25 M/mm3 (4.2-5.4); White Blood Count 11.5 K/mm3 (4.5-10.0)
[2025-03-25 12:15] LABS: Alanine Aminotransferase 22 U/L (6-35); Albumin Level 3.2 g/dL (3.5-5.1); Alkaline Phosphatase 99 U/L (38-126); Anion Gap 5 mmol/L (4-12); Aspartate Amino Transferase 28 U/L (14-36); Bilirubin,Total 0.2 mg/dL (0.2-1.3); Blood Urea Nitrogen 11 mg/dL (7-17); Calcium 8.6 mg/dL (8.4-10.2); Carbon Dioxide 21 mmol/L (22-30); Chloride 112 mmol/L (98-107); Estimated Glomerular Filt Rate > 60; Glucose 84 mg/dL (65-110); Sodium 138 mmol/L (137-145); Uric Acid 5.7 mg/dL (2.5-7.5)
[2025-03-25 12:17] VITALS: BP 147/72; PULSE 66
[2025-03-25 12:31] VITALS: BP 145/78; PULSE 76
--- NOTE | 2025-03-25 12:43 | PC.NURSE ---
1238--Reported labs, pt condition and BP's to Dr. Mar. Follow up BP in office mid next week. DC'd to home.
== END 2025-03-25 12:42 | disposition home or self-care (01) ==
LOC: ANHOBOP 11:37 → ANHOBPP 11:38
PROVIDERS: Visit Provider Obstetrics & Gynecology
DX: O13.9 Gestational [pregnancy-induced] hypertension without significant proteinuria, unspecified trimester (principal); Z3A.00 Weeks of gestation of pregnancy not specified
CPT/HCPCS: 36415; 80053; 84550; 85025; 99199